=== PATIENT | female | born 1985 | race Caucasian/White ===

== ENCOUNTER 2017-03-09 05:36 | Emergency (ER) | payer MEDICAID ==
[2017-03-09] MEDS ORDERED: Levofloxacin 750mg/150mL 750 MG/150 ML BAG IV ONE ×2 (06:06→06:29)
[2017-03-09] MEDS ORDERED: Albuterol/Ipratropium Neb 3 ML AERS HHN ONE (06:06)
[2017-03-09] MEDS ORDERED: Guaifenesin DM 10 ML UDC PO ONE (06:12)
[2017-03-09] MEDS ORDERED: Acetaminophen 500 MG TAB PO ONE (06:13)
[2017-03-09 06:28] LABS: % BASOPHILS 0.4 % (0.0-2.0); % EOSINOPHILS 5.8 % (0.0-5.0); % LYMPHOCYTES 25.2 % (20.0-50.0); % MONOCYTES 6.8 % (2.0-10.0); % NEUTROPHILS 61.8 % (40.0-80.0); HEMATOCRIT 38.4 % (41.0-60); HEMOGLOBIN 13.3 gm/dL (12-16); MEAN CORPUSCULAR HEMOGLOBIN 29.1 pg (27.0-31.0); MEAN CORPUSCULAR HGB CONC 34.6 pg (28.0-36.0); MEAN PLATELET VOLUME 9.2 fl; NEUTROPHILE ABSOLUTE 6.5 Th/cmm (1.8-8.0); PLATELET COUNT 230 Th/cmm (150-400); RED BLOOD COUNT 4.57 Mil/cmm (3.80-5.10); RED CELL DISTRIBUTION WIDTH 12.4 % (11.5-20.0); WHITE BLOOD COUNT 10.4 Th/cmm (4.8-10.8)
[2017-03-09] MEDS ORDERED: Acetaminophen 500 MG TAB ONE (06:29)
[2017-03-09] MEDS ORDERED: Guaifenesin DM 10 ML UDC ONE (06:46)
[2017-03-09 06:47] LABS: ALB/GLOB RATIO 1.1 (1.0-1.8); ALKALINE PHOSPHATASE 93 U/L (34-104); ANION GAP 9.3 (7.0-16.0); BILIRUBIN,TOTAL 0.3 mg/dL (0.3-1.0); BUN - UREA NITROGEN 10 mg/dL (7-25); BUN/CREATININE RATIO 16.7; CALCIUM SERUM 8.9 mg/dL (8.6-10.3); CARBON DIOXIDE 24.2 mEq/L (21.0-31.0); CHLORIDE 106 mEq/L (98-107); CREATININE - SERUM 0.6 mg/dL (0.6-1.2); GLUCOSE 114 mg/dL (70-105); POTASSIUM SERUM 3.5 mEq/L (3.5-5.1); SGOT 18 U/L (13-39); SGPT/ALT 20 U/L (7-52); SODIUM SERUM 136 mEq/L (136-145)
[2017-03-09 06:48] LABS: CHOLESTEROL 149 mg/dL (<200); TRIGLYCERIDES 105 mg/dL (<150)
[2017-03-09] MEDS ORDERED: Potassium Chloride 20 mEq ER Tab PO ONE (07:00)
[2017-03-09] MEDS ORDERED: Mag Sulfate 2gm/50mL Premix 2 GM/50 ML BAG IV ONE (07:01)
[2017-03-09 07:27] VITALS: BP 130/82
--- NOTE | 2017-03-09 07:33 | ED Physician Chart ---
ED Chief Complaint/HPI - Patient Information Date Seen:: 03/09/17 Time Seen:: 07:27 Chief Complaint:: SHORT OF BREATH SINCE 2 AM History of Present Illness:: THIS 32 YEAR OLD FEMALE PRESENTS WITH ONSET OF DIFFICULTY BREATHING ABOUT 2 AM. THE PT HAS A HISTORY OF ASTHMA. SHE HAS A PRODUCTIVE COUGH WITH A SMALL AMOUNT OF HEMOPTYSIS. THE PT DENIES FEVER, CHILLS OR DIAPHORESIS OR CHEST PAIN. POSITIVE FOR WHEEZING. NO NAUSEA OR VOMITING. Allergies:: Allergies Allergy/AdvReac Type Severity Reaction Status Date / Time No Known Allergies Allergy Verified 03/09/17 07:26 Vitals:: Vital Signs - 8 hr 03/09/17 03/09/17 03/09/17 05:51 06:02 06:47 Temp 97.4 F HR 100 110 RR 20 22 BP 121/75 125/84 125/84 O2 Sat % 95 100 03/09/17 03/09/17 06:59 07:26 Temp HR 71 RR 17 BP 130/82 130/82 O2 Sat % 100 ED Review of Systems - Review of Systems General/Constitutional: No fever, No chills, No weight loss, No weakness, No diaphoresis, No edema, No loss of appetite Skin: No skin lesions, No rash Head: No headache, No light-headedness Eyes: No loss of vision, No diplopia ENT: No earache, No sore throat Neck: No neck pain, No thyromegaly, No stiffness Cardio Vascular: No chest pain, No palpitations, No orthopnea Pulmonary: SOB, Sputum, Wheezing GI: No nausea, No vomiting, No diarrhea, No pain G/U: No dysuria, No frequency, No hematuria Lion Tamer: No vaginal discharge Musculoskeletal: No bone or joint pain, No muscle pain Psychiatric: Prior psych history, No depression, No anxiety, No suicidal ideation Hematopoietic: No bruising, No lymphadenopathy Allergic/Immuno: No urticaria, No angioedema Neurological: No syncope, No focal symptoms, No weakness, No paresthesia, No headache, No seizure, No confusion Family Medical History - Family Member Mother History Unknown: Yes ED Physical Exam - Physical Examination General/Constitutional: Awake, Well-developed, well-nourished, Alert, No distress, GCS 15, Non-toxic appearing, Ambulatory Head: Atraumatic Eyes: Lids, conjuctiva normal, PERRL, EOMI Skin: No rash Other Skin comments:: MANY TATTOOS ENMT: External ears, nose nl, Nasal exam nl, Lips, teeth, gums nl, Oropharynx nl , Tonsils nl Neck: Nontender, Full ROM w/o pain, No JVD, No nuchal rigidity, No mass, No stridor (NO THYROMEGALY) Respiratory: Nl effort/Exclusion, Clear to Auscultation, No Wheeze/Rhonchi/Rales Cardio Vascular: RRR, No murmur, gallop, rubs, NL S1 S2 Other Cardio Vascular comments:: GOOD PULSES IN ALL 4 EXTREMITIES GI: No tenderness/rebounding/guarding, No organomegaly, No hernia, Nondistended , No mass/bruits, No McBurney tenderness Other GI comments:: Rectal exam deferred at my discretion. : No CVA tenderness Extremities: No tenderness or effusion, Full ROM, normal strength in all extremities, No edema Other Extremities comments:: No calf tenderness and negative Homans sign. Neuro/Psych: Alert/oriented, Normal sensory exam, Normal motor strength, Judgement/insight normal, Mood normal, Normal gait, No focal deficits Misc: Normal back, No paraspinal tenderness ED Labs/Radiology/EKG Results - Lab Results Results: Laboratory Tests 03/09/17 03/09/17 03/09/17 06:17 06:17 06:17 WBC 10.4 RBC 4.57 Hgb 13.3 Hct 38.4 L MCV 84.0 MCH 29.1 MCHC Differential 34.6 RDW 12.4 Plt Count 230 MPV 9.2 Neutrophils % 61.8 Lymphocytes % 25.2 Monocytes % 6.8 Eosinophils % 5.8 H Basophils % 0.4 Sodium 136 Potassium 3.5 Chloride 106 Carbon Dioxide 24.2 Anion Gap 9.3 BUN 10 Creatinine 0.6 Est GFR ( Amer) > 60.0 Est GFR (Non-Af Amer) > 60.0 BUN/Creatinine Ratio 16.7 Glucose 114 H Whole Bld Lactic Acid Calcium 8.9 Magnesium 1.9 Total Bilirubin 0.3 AST 18 ALT 20 Alkaline Phosphatase 93 Total Protein 7.4 Albumin 3.9 Globulin 3.5 Albumin/Globulin Ratio 1.1 Triglycerides Cholesterol LDL Cholesterol Direct HDL Cholesterol 03/09/17 03/09/17 06:17 06:17 WBC RBC Hgb Hct MCV MCH MCHC Differential RDW Plt Count MPV Neutrophils % Lymphocytes % Monocytes % Eosinophils % Basophils % Sodium Potassium Chloride Carbon Dioxide Anion Gap BUN Creatinine Est GFR ( Amer) Est GFR (Non-Af Amer) BUN/Creatinine Ratio Glucose Whole Bld Lactic Acid 1.25 Calcium Magnesium Total Bilirubin AST ALT Alkaline Phosphatase Total Protein Albumin Globulin Albumin/Globulin Ratio Triglycerides 105 Cholesterol 149 LDL Cholesterol Direct 100 HDL Cholesterol 49 The CBC showed no leukocytosis or anemia. Electrolytes were all within normal parameters. The glucose was 114. Lactic acid was within normal parameters. Liver function tests were all within normal parameters. Single view AP chest x-ray: No cardiomegaly or CHF. No pneumothorax. No pleural effusions. No areas of pulmonary infiltrate or consolidation. Impression: No acute cardiopulmonary findings. EKG: Sinus tachycardia at a rate of 103. Ectopy is present. Normal ID interval. QRS duration. Normal QT interval. The axis is normal. No ST segment elevation or depression. Impression: Normal EKG except for tachycardia. No ischemic findings. ED Assessment - Assessment General Assessment: CASE SUMMARY: THIS 32 YEAR OLD FEMALE HAD ONSET OF RESPIRATORY DISTRESS AND WHEEZING AT 2 AM. PT HAS PRIOR HISTORY OF ASTHMA. HER SYMPTOMS WERE ADDRESSED WITH NEBULIZED ALBUTEROL AND ATROVENT WITH COMPLETE RELIEF OF SYMPTOMS. PT HAS RX FOR PREDNISONE THAT SHE TAKES FOR MYASTHENIA GRAVIS. CXR WAS NEGATIVE FOR CHF, PULMONARY CONSOLIDATION AND PNEUMOTHORAX. DISCHARGED IN STABLE CONDITION WITH RX FOR ALBUTEROL MDI. MDM DDX ACUTE RESPIRATORY DISTRESS: NOT Pneumothorax based on negative CXR. NOT Pneumonia based on negative CXR. LOW RISK for pulmonary embolus with Well' s score of 1.5 (pulse >100). NOT Metabolic acidosis based on lab results. ED Septic Shock - . Is Septic Shock (SBP<90, OR Lactate>4 mmol\L) present?: No - <6hrs of presentation: Vital Signs: Vital Signs - 8 hr 03/09/17 03/09/17 03/09/17 05:51 06:02 06:47 Temp 97.4 F HR 100 110 RR 20 22 BP 121/75 125/84 125/84 O2 Sat % 95 100 03/09/17 03/09/17 06:59 07:26 Temp HR 71 RR 17 BP 130/82 130/82 O2 Sat % 100 ED Reassessment (Disposition) - Reassessment Reassessment Condition:: Improved - Diagnosis Diagnosis:: ASTHMA EXACERBATION. MYASTHENIA GRAVIS. Usual her metered-dose inhaler of albuterol for any further wheezing or difficulty breathing. Follow up with your primary care physician this coming week if you were not back to completely normal. Return to the emergency department for any worsening of symptoms or significant trouble breathing. - Aftercare/Follow up Instructions Aftercare/Follow-Up Instructions:: Counseled pt regarding lab results/diagnosis & need follow up - Patient Disposition Discharge/Transfer:: Home ED Discharge Plan - Patient Disposition Admit/Discharge/Transfer: PT DISCHARGED HOME Condition at Disposition: Stable Instructions: Asthma, Adult, Myasthenia Gravis Additional Instructions: Pls follow up with primary care physician in 1-2 days.
[2017-03-09] MEDS ORDERED: Atorvastatin Calcium 10 MG TAB PO SCH (09:00)
--- NOTE | 2017-03-09 09:50 | Diagnostic Imaging Report ---
CHEST X-RAY: AP view INDICATION: Bronchitis, pneumonia COMPARISON: None FINDINGS: There is no focal consolidation or pleural effusions The heart is normal in size. The osseous structures demonstrate no acute abnormalities. IMPRESSION: No focal consolidation identified.
--- NOTE | 2017-03-09 10:07 | ER Physician Documentation ---
DATE OF SERVICE: HISTORY OF PRESENT ILLNESS: A 32-year-old female. The patient is a mother of 5 children came to the hospital because of shortness of breath, productive cough for past 24 hours. The patient was apparently fine, then she started to get shortness of breath, difficulty in breathing and productive cough with yellowish greenish sputum. She had, I think, this complaint maybe a year or so ago, but after that she never had this complaint. She has no history of pneumonia, TB, pulmonary embolism, COPD, emphysema, bronchitis. She does not have any other significant complaints. She has some mild obesity. There is no history of diabetes mellitus. PAST MEDICAL HISTORY: Positive for asthma and myasthenia gravis. FAMILY HISTORY: She has a family history of high cholesterol. Mother had heart disease. CURRENT MEDICATIONS: Includes Mestinon 60 mg q.3 hours whenever her neurologist recommended for myasthenia gravis plus prednisone 10 mg a day. She takes daily methotrexate, she takes 2 mg daily. ALLERGIES: None known. PAIN: No pain. CODE STATUS: Full code. SOCIAL HISTORY: She does not smoke. She does not drink. REVIEW OF SYSTEMS: EYES: No history of double vision, blurring, blindness, exophthalmus. CENTRAL NERVOUS SYSTEM: No history of TIA, stroke, encephalitis, meningitis. PULMONARY: No history of pneumonia, TB, pulmonary embolism, COPD, emphysema, bronchitis, but right now, she has presented with acute bronchitis, rule out pneumonia. We need to get a chest x-ray done. Sputum for culture has been ordered, breathing treatments etc., antibiotics has been ordered. CARDIAC: No history of chest pain. No history of rheumatic fever, valvular heart disease, pericardial disease, or cardiomyopathy. BONES AND JOINTS: Some mild aches and pains. She has obesity. ENDOCRINE: No diabetes mellitus. No hypo or hyperthyroidism. GI: No history of diarrhea, constipation, vomiting. No history of Crohn's disease, bleeding ____ rectum. ALLERGIES: None known. HABITS: She does not smoke. She does not drink. PHYSICAL EXAMINATION: GENERAL: Done on March 09 around 6:25 p.m. showing that the patient is awake, alert, and oriented. She is short of breath. She is in respiratory distress. VITAL SIGNS: Saturation is 95%. Temperature 97.4, pulse 100 beats per minute, respirations 19, and oxygen saturation 95%, height 5 feet 1 inch, weighing 235 pounds. EXTREMITIES: No edema, no cyanosis. Peripheral pulses appear to be normal. CHEST: Appears to be emphysematous. Chest wall AP diameter is increased. Bilateral decreased air entry in both the lung barone. There are few rales, rhonchi in both lung barone. scattered all over the lung field audible. No bronchial breathing is found. ABDOMEN: Obese, otherwise benign and negative. HEART: Normal heart sounds. No fourth heart sounds. Second heart sound physiologically split. Third heart sound is absent. CENTRAL NERVOUS SYSTEM: Within normal limits at the present moment, but she has myasthenia gravis for which she is followed by her neurologist and she takes Mestinon 60 mg q.3 hours per direction of her physician. Whenever she needs it that is the time she orders it. All the orders have been written. The patient will be given the medications. Labs are ordered. The nurses will follow that or the new physician who is going to follow me will follow. If I get the results, we will report it and ____. JOB# [id number]
== END 2017-03-09 08:05 | disposition home or self-care (01) ==
LOC: ER 05:36
DX: J45.901 Unspecified asthma with (acute) exacerbation (principal); G70.00 Myasthenia gravis without (acute) exacerbation
CPT/HCPCS: 99285; 96365; 96375; 94640; 93005; 71010; 36415; 83605; 86141; 85025; 81025; 83735; 80053; 80061; J1956; C9113; J1940; J0696; J2930; 87070; 87086-90; Z7610

== ENCOUNTER 2017-07-09 08:46 | Emergency (ER) | payer MEDICAID ==
--- NOTE | 2017-07-09 11:39 | Diagnostic Imaging Report ---
CT scan of the brain without contrast History: Pain, trauma Total DLP equals 699 CTDI equals 36.5 Axial sections were obtained from the base of the skull to the vertex. There is a normal ventricular system size. No focal parenchymal lesions are seen. No evidence of any mass effect or shift of midline structures. No extra-axial masses or abnormal fluid collections. Impression: Negative examination
--- NOTE | 2017-07-09 11:41 | Diagnostic Imaging Report ---
CT scan cervical spine History: Pain, trauma Total DLP equals 497 CTDI equals 29.2 Axial sections were obtained through the cervical spine region. Additional sagittal and coronal reformatted images are provided. No focal bony lesions are seen. Specifically, no fractures are identified. There is limited visualization of the margins of the cervical spinal cord. No obvious extradural soft tissue abnormalities are seen. The prevertebral soft tissues appear normal. Impression: No acute abnormalities
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
== END 2017-07-09 12:14 | disposition home or self-care (01) ==
LOC: ER 08:46
DX: S16.1XXA Strain of muscle, fascia and tendon at neck level, initial encounter (principal); S00.03XA Contusion of scalp, initial encounter; R51 Headache; W01.0XXA Fall on same level from slipping, tripping and stumbling without subsequent striking against object, initial encounter; Y93.89 Activity, other specified; Y92.89 Other specified places as the place of occurrence of the external cause; Y99.8 Other external cause status
CPT/HCPCS: 70450-TC; 72125-TC; 81025-TC; Z7502

== ENCOUNTER 2017-07-29 11:36 | Inpatient (IN) | payer MEDICAID ==
[2017-07-29] MEDS ORDERED: Albuterol/Ipratropium Neb 3 ML AERS HHN ONE ×4 (11:50→14:08)
--- NOTE | 2017-07-29 12:00 | ED Physician Chart ---
ED Chief Complaint/HPI - Patient Information Date Seen:: 07/29/17 Time Seen:: 11:50 Chief Complaint:: Dyspnea History of Present Illness:: onset x one day of dyspnea, cough, and wheezing; hx of MG and Asthma; pt denies trauma, H/As, neck pain, C/P, SOB, Abd. Pain, A/N/V/D/C, fever, chills, or urinary s/s Allergies:: Allergies Allergy/AdvReac Type Severity Reaction Status Date / Time No Known Allergies Allergy Verified 03/09/17 07:26 Vitals:: Vital Signs - 8 hr 07/29/17 11:52 HR 120 RR 12 O2 Sat % 92 Historian:: Patient Review:: Nurse's Note Reviewed ED Review of Systems - Review of Systems General/Constitutional: No fever, No chills, No weight loss, No weakness, No diaphoresis, No edema, No loss of appetite Skin: No skin lesions, No rash, No bruising Head: No headache, No light-headedness Eyes: No loss of vision, No pain, No diplopia ENT: No earache, No nasal drainage, No sore throat, No tinnitus Neck: No neck pain, No swelling, No thyromegaly, No stiffness, No mass noted Cardio Vascular: No chest pain, No palpitations, No PND, No orthopnea, No edema Pulmonary: SOB, Cough, No sputum, Wheezing GI: No nausea, No vomiting, No diarrhea, No pain, No melena, No hematochezia, No constipation, No hematemesis G/U: No dysuria, No frequency, No hematuria Xerox Machine Operator: No vaginal discharge, No abnormal vaginal bleed, No contraction Musculoskeletal: No bone or joint pain, No back pain, No muscle pain Endocrine: No polyuria, No polydipsia Psychiatric: No prior psych history, No depression, No anxiety, No suicidal ideation, No homicidal ideation, No auditory hallucination, No visual hallucination Hematopoietic: No bruising, No lymphadenopathy Allergic/Immuno: No urticaria, No angioedema Neurological: No syncope, No focal symptoms, Weakness, No paresthesia, No headache, No seizure, No dizziness, No confusion, No vertigo ED Past Medical History - Past Medical History Obtainable: Yes Past Medical History: Asthma/COPD, Other (Myasthenia Gravis) Family History: HTN Social History: Non Smoker, No Alcohol, No Drug Use, Single Surgical History: None Psychiatricy History: None Medication: Reviewed Family Medical History - Family Member Mother History Unknown: Yes ED Physical Exam - Physical Examination General/Constitutional: Awake, Well-developed, well-nourished, Alert, No distress, GCS 15, Non-toxic appearing, Ambulatory Head: Atraumatic Eyes: Lids, conjuctiva normal, PERRL, EOMI Skin: Nl inspection, No rash, No skin lesions, No ecchymosis, Well hydrated, No lymphadenopathy ENMT: External ears, nose nl, TM canals nl, Nasal exam nl, Lips, teeth, gums nl , Oropharynx nl, Tonsils nl Neck: Nontender, Full ROM w/o pain, No JVD, No nuchal rigidity, No bruit, No mass, No stridor Respiratory: Nl effort/Exclusion Other Respiratory comments:: Lungs: + Diffuse Wheezes Cardio Vascular: RRR, No murmur, gallop, rubs, NL S1 S2 GI: No tenderness/rebounding/guarding, No organomegaly, No hernia, Normal BS's, Nondistended, No mass/bruits, No McBurney tenderness : No CVA tenderness Extremities: No tenderness or effusion, Full ROM, normal strength in all extremities, No edema, Normal digits & nails Neuro/Psych: Alert/oriented, DTR's symmetric, Normal sensory exam, Normal motor strength, Judgement/insight normal, Mood normal, Normal gait, No focal deficits Misc: Normal back, No paraspinal tenderness ED Labs/Radiology/EKG Results - Lab Results Comments:: K+: 3.4; Na+: 134 - Radiology Results Comments:: NAD - EKG Interpretations EKG Time:: 12:01 Rate & Rhythm: 111; ST Comments:: non-specific st-t changes ED Septic Shock - . Is Septic Shock (SBP<90, OR Lactate>4 mmol\L) present?: No - <6hrs of presentation: Vital Signs: Vital Signs - 8 hr 07/29/17 11:52 HR 120 RR 12 O2 Sat % 92 ED Reassessment (Disposition) - Reassessment Reassessment Condition:: Improved - Diagnosis Diagnosis:: Dx: Acute Asthma; Hypokalemia; Bronchospasms; Dyspnea; Wheezing; Bronchitis; Hyponatremia; Dehydration; Tachycardia - Aftercare/Follow up Instructions Aftercare/Follow-Up Instructions:: Counseled pt regarding lab results/diagnosis & need follow up, Counseled pt & family regarding lab results/diagnosis & need follow up - Patient Disposition Discharge/Transfer:: Acute Care w/in this hosp Accepting Physician:: Dr. Sheriff Time Called:: 1330 Time Responded:: 13:30 Admitted to:: Telemetry Spoke to:: Dr. Sheriff Admitting Medical Physician:: Dr. Sheriff Condition at Disposition:: Stable, Improved
[2017-07-29 12:27] LABS: % BASOPHILS 0.4 % (0.0-2.0); % EOSINOPHILS 5.9 % (0.0-5.0); % LYMPHOCYTES 20.6 % (20.0-50.0); % MONOCYTES 5.5 % (2.0-10.0); % NEUTROPHILS 67.6 % (40.0-80.0); EOSINOPHILE ABSOLUTE 0.5 Th/cmm (0.1-0.4); HEMATOCRIT 41.3 % (41.0-60); HEMOGLOBIN 13.9 gm/dL (12-16); LYMPHOCYTE ABSOLUTE 1.9 Th/cmm (1.5-3.0); MEAN CELL VOLUME 83.9 fl (81-100); MEAN CORPUSCULAR HEMOGLOBIN 28.2 pg (27.0-31.0); MEAN CORPUSCULAR HGB CONC 33.7 pg (28.0-36.0); MEAN PLATELET VOLUME 8.8 fl; MONOCYTE ABSOLUTE 0.5 Th/cmm (0.3-1.0); NEUTROPHILE ABSOLUTE 6.2 Th/cmm (1.8-8.0); PLATELET COUNT 237 Th/cmm (150-400); RED BLOOD COUNT 4.92 Mil/cmm (3.80-5.10); WHITE BLOOD COUNT 9.1 Th/cmm (4.8-10.8)
[2017-07-29 12:50] LABS: ALB/GLOB RATIO 1.1 (1.0-1.8); ALBUMIN 4.1 gm/dL (3.7-5.3); ALKALINE PHOSPHATASE 90 U/L (34-104); ANION GAP 9.1 (7.0-16.0); BILIRUBIN,TOTAL 0.3 mg/dL (0.3-1.0); BUN - UREA NITROGEN 7 mg/dL (7-25); CALCIUM SERUM 9.5 mg/dL (8.6-10.3); CARBON DIOXIDE 24.3 mEq/L (21.0-31.0); CHLORIDE 104 mEq/L (98-107); CHOLESTEROL 150 mg/dL (<200); CREATININE - SERUM 0.5 mg/dL (0.6-1.2); CREATININE KINASE 40 U/L (30-223); GFR AFRICAN-AMERICAN > 60.0 ml/min (>90); GFR NON AFRICAN-AMERICAN > 60.0 ml/min; GLUCOSE 114 mg/dL (70-105); HDL -HIGH DENSITY LIPOPROTEIN 43 mg/dL (23-92); POTASSIUM SERUM 3.4 mEq/L (3.5-5.1); SGOT 19 U/L (13-39); SGPT/ALT 18 U/L (7-52); SODIUM SERUM 134 mEq/L (136-145); TOTAL PROTEIN,SERUM 7.7 gm/dL (6.0-8.3); TRIGLYCERIDES 185 mg/dL (<150)
[2017-07-29 12:58] LABS: INR 0.95 (0.5-1.4); PROTHROMBIN TIME (TEST) 9.9 SECONDS (9.5-11.5)
[2017-07-29 13:11] LABS: DDIMER QUANT 164 ng/mL (100-400)
[2017-07-29] MEDS ORDERED: Potassium Chloride 20 mEq ER Tab PO ONE ×2 (14:04→14:33)
[2017-07-29] MEDS ORDERED: Sodium Chloride 0.9% 1,000 ML IV ONE (14:20)
[2017-07-29] MEDS ORDERED: cefTRIAXone 1 GM in Sodium Chloride 0.9% 50 ML IV ONE (14:49)
--- NOTE | 2017-07-29 14:57 | Diagnostic Imaging Report ---
CHEST X-RAY: AP view INDICATION: Cough COMPARISON: 03/09/2017 FINDINGS: Suboptimal lung volume are seen with mild increased right basal lung markings. There is no focal consolidation or pleural effusions . The heart is at the upper limits of normal in size. The osseous structures demonstrate no acute abnormalities. IMPRESSION: Mild increased right basal lung markings favoring atelectasis versus less likely infiltrate.
[2017-07-29] MEDS ORDERED: Albuterol Nebulizer 2.5mg/3mL HHN SCH (18:13)
[2017-07-29] MEDS ORDERED: Albuterol Nebulizer 2.5mg/3mL HHN ONE (18:15)
[2017-07-29] MEDS: Pantoprazole 40 mg/Packet PO SCH (22:04)
[2017-07-30] MEDS: methylPREDNISolone SS 40 mg Vial IVP SCH ×3 (00:20→14:18)
--- NOTE | 2017-07-30 00:51 | Progress Notes ---
DATE: 07/29/2017 REASON FOR CONSULTATION: Shortness of breath. CONSULT NOTE: This is a 32-year-old female who is a known asthmatic for 6-7 years and has been taking p.r.n. albuterol for most of the time is well controlled. Apparently last day to 3 days, patient get cold-like symptoms with questionable fever, questionable feeling cold. Subsequently, the patient's temperature tessie this morning, came to the Emergency Room for further care and necessary treatment. Had some mucoid color sputum, does not quantify the temperature, had some wheezing. No swelling of the legs, some sinus congestion, otherwise unremarkable. Denied of any other related symptomatology. PAST MEDICAL HISTORY: 1. Suggestive of bronchial asthma. 2. Myasthenia gravis, taking Mestinon and prednisone and also albuterol. SMOKING HISTORY: Nil. ALLERGIC HISTORY: Nil. FAMILY HISTORY: Noncontributory related to asthma. PHYSICAL EXAMINATION: GENERAL: This is a youngest looking female, awake, alert, oriented, not in acute distress, periodic episodes of coughing at my exam. VITAL SIGNS: The patient's recorded vitals, blood pressure is 120/70. Temperature is 98, heart rate 110-120, respirations 20. HEENT: Head is essentially unremarkable. Pupils appear to be equal and reactive to light. Oral cavity shows small oropharyngeal opening otherwise unremarkable. NECK: Short. No nodes in the neck could be palpated. CHEST: Shows scattered wheezing with diminished air entry. HEART: Regular, slightly tachycardic. ABDOMEN: Soft, nontender. EXTREMITIES: Shows no peripheral edema. LABORATORY DATA: The patient's chest x-ray shows a hypovolemic, did not take a deep breath and other laboratory studies except potassium is on the lower side. ASSESSMENT: 1. The patient has acute asthmatic bronchitis. 2. Underlying history of myasthenia gravis. 3. Question , possibly viral. PLANS AND SUGGESTIONS: We will go ahead and continue steroid. We will continue inhaled steroid. We will give bronchodilators and also add Protonix to current treatment. We will repeat chest x-ray, blood gases tomorrow to see how it is and go from there. JOB# [id number]
--- NOTE | 2017-07-30 03:30 | History & Physical ---
ADMIT DATE: 07/29/2017 CHIEF COMPLAINT: Shortness of breath. HISTORY OF PRESENT ILLNESS: This is a 32-year-old female who was evaluated at [facility] Emergency Room for fever, chest congestion, and shortness of breath, diagnosed with shortness of breath. The patient does have underlying history of asthma. The patient was diagnosed with acute exacerbations and subsequently admitted to the hospital for treatments. The patient started having fever, chest congestion for the past. It progressively got worse. Denies any sick contact. No recent travel history. Denies any nausea, vomiting, abdominal pain, dizziness, chest pain, palpitations, or diaphoresis. PAST MEDICAL HISTORY: Asthma. PAST SURGICAL HISTORY: Denies. FAMILY HISTORY: Denies any significant family history. SOCIAL HISTORY: Lives at home. Denies alcohol, tobacco, or street drug use. CURRENT MEDICATIONS: As per chart reviewed. PHYSICAL EXAMINATION: HEENT: Unremarkable. HEART: S1, S2 normal. LUNGS: Bilateral expiratory wheezing noted. ABDOMEN: Soft, nontender. NEUROLOGIC: Alert and awake. Moves all. No focal deficits. EXTREMITIES: No edema noted. No calf tenderness. AVAILABLE LABORATORY DATA: Has been reviewed. ASSESSMENT: 1. Acute exacerbations. 2. Fever, rule out influenza. 3. Obesity. PLAN: The patient admitted to Med-Surg floor. The patient was started on IV Rocephin, frequent bronchodilators, inhaled corticosteroids, IV Solu-Medrol, IV Rocephin ____. Pulmonology was consulted. We will follow up on the further workup and special recommendation. Discussed with the patient regarding conditions and plan of care with the nursing staff. JOB# [id number]
[2017-07-30 03:35] LABS: INF A SCREEN POS FOR INF A; INF B SCREEN NEG FOR INF B
[2017-07-30 03:47] VITALS: BP 123/69
[2017-07-30] MEDS: Albuterol Nebulizer 2.5mg/3mL HHN PRN ×2 (05:42→10:33)
[2017-07-30] MEDS: Budesonide 0.5 Mg/2 mL Ud HHN SCH ×2 (06:51→18:52)
[2017-07-30 07:19] LABS: % EOSINOPHILS 0.2 % (0.0-5.0); % LYMPHOCYTES 9.8 % (20.0-50.0); % MONOCYTES 0.9 % (2.0-10.0); % NEUTROPHILS 89.1 % (40.0-80.0); HEMATOCRIT 40.1 % (41.0-60); HEMOGLOBIN 13.3 gm/dL (12-16); MEAN CELL VOLUME 84.9 fl (81-100); MEAN CORPUSCULAR HEMOGLOBIN 28.1 pg (27.0-31.0); MEAN CORPUSCULAR HGB CONC 33.1 pg (28.0-36.0); MEAN PLATELET VOLUME 9.1 fl; MONOCYTE ABSOLUTE 0.1 Th/cmm (0.3-1.0); PLATELET COUNT 265 Th/cmm (150-400); RED BLOOD COUNT 4.72 Mil/cmm (3.80-5.10); RED CELL DISTRIBUTION WIDTH 13.3 % (11.5-20.0); WHITE BLOOD COUNT 10.1 Th/cmm (4.8-10.8)
[2017-07-30 08:52] LABS: ALLEN TEST POSITIVE; pH 7.38 (7.35-7.45)
[2017-07-30] MEDS: Pantoprazole 40 mg/Packet PO SCH (09:48)
--- NOTE | 2017-07-30 09:51 | Diagnostic Imaging Report ---
Chest x-ray 2 views HISTORY:Shortness of breath The overall heart size is normal. No focal pulmonary processes. No hilar or mediastinal abnormalities. IMPRESSION: No acute abnormalities.
[2017-07-30] MEDS: Albuterol/Ipratropium Neb 3 ML AERS HHN SCH ×2 (14:20→18:40)
--- NOTE | 2017-07-30 20:43 | General Progress Note ---
Subjective - Review of Systems Service Date: 07/30/17 Subjective: Patient seen and examined feels better denied any complaints Objective - Results Result Diagrams: 07/30/17 06:21 07/29/17 12:15 Recent Labs: Laboratory Last Values WBC 10.1 Th/cmm (4.8-10.8) 07/30/17 06:21 RBC 4.72 Mil/cmm (3.80-5.10) 07/30/17 06:21 Hgb 13.3 gm/dL (12-16) 07/30/17 06:21 Hct 40.1 % (41.0-60) L 07/30/17 06:21 MCV 84.9 fl (81-100) 07/30/17 06:21 MCH 28.1 pg (27.0-31.0) 07/30/17 06:21 MCHC Differential 33.1 pg (28.0-36.0) 07/30/17 06:21 RDW 13.3 % (11.5-20.0) 07/30/17 06:21 Plt Count 265 Th/cmm (150-400) 07/30/17 06:21 MPV 9.1 fl 07/30/17 06:21 Neutrophils % 89.1 % (40.0-80.0) H 07/30/17 06:21 Lymphocytes % 9.8 % (20.0-50.0) L 07/30/17 06:21 Monocytes % 0.9 % (2.0-10.0) L 07/30/17 06:21 Eosinophils % 0.2 % (0.0-5.0) 07/30/17 06:21 Basophils % 0.0 % (0.0-2.0) 07/30/17 06:21 PT 9.9 SECONDS (9.5-11.5) 07/29/17 12:15 INR 0.95 (0.5-1.4) 07/29/17 12:15 D-Dimer 164 ng/mL (100-400) 07/29/17 12:15 Specimen Source Arterial 07/30/17 08:38 Sample Site Left Radial 07/30/17 08:38 pH 7.38 (7.35-7.45) 07/30/17 08:38 pCO2 40.0 mmHg (35.0-45.0) 07/30/17 08:38 pO2 60.0 mmHg (80.0-100.0) L 07/30/17 08:38 HCO3 23.7 mEq/L (20.0-26.0) 07/30/17 08:38 Base Excess -1.3 mEq/L (-3.0-3.0) 07/30/17 08:38 O2 Saturation 90.0 % (92.0-100.0) L 07/30/17 08:38 Khoa Test POSITIVE 07/30/17 08:38 Vent Rate NA 07/30/17 08:38 Inspired O2 28 07/30/17 08:38 Tidal Volume NA 07/30/17 08:38 PEEP NA 07/30/17 08:38 Pressure (ins/psv/peep) NA 07/30/17 08:38 Critical Value BJORN MATUTE 07/30/17 08:38 Sodium 134 mEq/L (136-145) L 07/29/17 12:15 Potassium 3.4 mEq/L (3.5-5.1) L 07/29/17 12:15 Chloride 104 mEq/L (98-107) 07/29/17 12:15 Carbon Dioxide 24.3 mEq/L (21.0-31.0) 07/29/17 12:15 Anion Gap 9.1 (7.0-16.0) 07/29/17 12:15 BUN 7 mg/dL (7-25) 07/29/17 12:15 Creatinine 0.5 mg/dL (0.6-1.2) L 07/29/17 12:15 Est GFR ( Amer) > 60.0 ml/min (>90) 07/29/17 12:15 Est GFR (Non-Af Amer) > 60.0 ml/min 07/29/17 12:15 BUN/Creatinine Ratio 14.0 07/29/17 12:15 Glucose 114 mg/dL (70-105) H 07/29/17 12:15 POC Glucose 162 MG/DL (70 - 105) H 07/30/17 03:05 Calcium 9.5 mg/dL (8.6-10.3) 07/29/17 12:15 Total Bilirubin 0.3 mg/dL (0.3-1.0) 07/29/17 12:15 AST 19 U/L (13-39) 07/29/17 12:15 ALT 18 U/L (7-52) 07/29/17 12:15 Alkaline Phosphatase 90 U/L (34-104) 07/29/17 12:15 Creatine Kinase 40 U/L (30-223) 07/29/17 12:15 Troponin I < 0.01 ng/mL (0.01-0.05) L 07/29/17 12:15 B-Natriuretic Peptide 5.5 pg/mL (5.0-100.0) 07/29/17 12:15 Total Protein 7.7 gm/dL (6.0-8.3) 07/29/17 12:15 Albumin 4.1 gm/dL (3.7-5.3) 07/29/17 12:15 Globulin 3.6 gm/dL 07/29/17 12:15 Albumin/Globulin Ratio 1.1 (1.0-1.8) 07/29/17 12:15 Triglycerides 185 mg/dL (<150) H 07/29/17 12:15 Cholesterol 150 mg/dL (<200) 07/29/17 12:15 LDL Cholesterol Direct 86 mg/dL (75-193) 07/29/17 12:15 HDL Cholesterol 43 mg/dL (23-92) 07/29/17 12:15 Serum , Qual NEGATIVE (NEGATIVE) 07/29/17 12:15 Influenza A (Rapid) POS FOR INF A H 07/29/17 22:00 Influenza B (Rapid) NEG FOR INF B 07/29/17 22:00 - Physical Exam Vitals and I&O: Vital Signs Temp 96.6 F 07/30/17 20:00 Pulse 137 07/30/17 20:00 Resp 18 07/30/17 20:00 BP 125/66 07/30/17 20:00 Pulse Ox 97 07/30/17 20:00 Intake & Output 07/30/17 07/30/17 07/31/17 06:59 18:59 06:59 Intake Total 240 Balance 240 Weight (lbs) 106.141 kg 106.141 kg Intake: Oral 240 Other: # Voids 1 # Bowel Movements 0 Stool Characteristics Soft Active Medications: Current Medications Albuterol Sulfate (Albuterol 2.5mg/3ml Neb Ud) 2.5 mg HHN Q2H PRN PRN Reason: Shortness of Breath or Wheeze Stop: 09/27/17 18:12 Last Admin: 07/30/17 10:33 Dose: 2.5 mg Albuterol/Ipratropium (Duoneb Neb) 3 ml HHN [id number] [facility] Stop: 09/28/17 14:59 Last Admin: 07/30/17 18:40 Dose: 3 ml Budesonide (Pulmicort) 0.5 mg HHN BIDRT [facility] Stop: 09/28/17 06:59 Last Admin: 07/30/17 18:52 Dose: 0.5 mg Oseltamivir Phosphate (Tamiflu) 75 mg PO BID [facility] Stop: 09/27/17 19:44 Last Admin: 07/30/17 17:19 Dose: 75 mg Pantoprazole Sodium (Protonix) 40 mg PO DAILY [facility] Stop: 09/27/17 19:44 Last Admin: 07/30/17 09:48 Dose: 40 mg Prednisone (Deltasone) 10 mg PO BID [facility] Stop: 09/28/17 16:59 Last Admin: 07/30/17 17:19 Dose: 10 mg Pyridostigmine [place] (Mestinon) 60 mg PO TID [facility] General: Alert Cardiovascular: Regular rate Lungs: Other (few rales) Assessment/Plan - Problem List Patient Problems: All Active Problems SEVERE DYSPNEA WITH UPPER BACK PAIN (Acute) - Assessment Assessment: Acute asthma excerbation Influenza A illness Myesthenia gravia - Plan Plan: Tamiflu Steoids Rocephine HHN Plan of care discussed with nursing staff
--- NOTE | 2017-07-31 03:47 | Progress Notes ---
DATE: 07/30/2017 PROBLEM LIST: 1. Acute bronchial asthma. 2. Acute viral syndrome. SYMPTOMS: Nil, feeling better, breathing is much better than what it has been and no respiratory distress, etc. PHYSICAL EXAMINATION: VITAL SIGNS: The patient's recorded vitals, her temperature is 97.8, blood pressure 112/61. NECK: Veins not visualized. CHEST: Shows diminished air entry with occasional rhonchi. HEART: Regular. ABDOMEN: Soft, nontender. LABORATORY DATA: The patient's white count is 10,001. ABG, pO2 of 60 and influenza A titer is positive, rapid influenza titer. The patient's chest x-ray is clear. ASSESSMENT: The patient has acute viral syndrome with asthmatic bronchitis. PLANS AND SUGGESTIONS: We will switch her to oral medication, oral steroid and will go ahead and continue Tamiflu for now and will follow through other studies, etc., in next 24 hours. The patient remains clinically should be okay to discharge in the next 24-48 hours. Care and plan discussed with the nursing staff. JOB# [id number]
[2017-07-31 07:07] LABS: ANION GAP 9.9 (7.0-16.0); BUN - UREA NITROGEN 12 mg/dL (7-25); CALCIUM SERUM 9.3 mg/dL (8.6-10.3); CARBON DIOXIDE 20.8 mEq/L (21.0-31.0); CHLORIDE 106 mEq/L (98-107); CREATININE - SERUM 0.5 mg/dL (0.6-1.2); GFR AFRICAN-AMERICAN > 60.0 ml/min (>90); GFR NON AFRICAN-AMERICAN > 60.0 ml/min; GLUCOSE 121 mg/dL (70-105); POTASSIUM SERUM 3.7 mEq/L (3.5-5.1); SODIUM SERUM 133 mEq/L (136-145)
[2017-07-31] MEDS: Albuterol/Ipratropium Neb 3 ML AERS HHN SCH ×2 (07:57→11:26)
[2017-07-31] MEDS: Budesonide 0.5 Mg/2 mL Ud HHN SCH (07:59)
[2017-07-31] MEDS: Pantoprazole 40 mg/Packet PO SCH (09:48)
--- NOTE | 2017-07-31 13:38 | General Progress Note ---
Subjective - Review of Systems Service Date: 07/31/17 Subjective: Patient seen and examined feels better denied any complaints Objective - Results Result Diagrams: 07/30/17 06:21 07/31/17 06:00 Recent Labs: Laboratory Last Values WBC 10.1 Th/cmm (4.8-10.8) 07/30/17 06:21 RBC 4.72 Mil/cmm (3.80-5.10) 07/30/17 06:21 Hgb 13.3 gm/dL (12-16) 07/30/17 06:21 Hct 40.1 % (41.0-60) L 07/30/17 06:21 MCV 84.9 fl (81-100) 07/30/17 06:21 MCH 28.1 pg (27.0-31.0) 07/30/17 06:21 MCHC Differential 33.1 pg (28.0-36.0) 07/30/17 06:21 RDW 13.3 % (11.5-20.0) 07/30/17 06:21 Plt Count 265 Th/cmm (150-400) 07/30/17 06:21 MPV 9.1 fl 07/30/17 06:21 Neutrophils % 89.1 % (40.0-80.0) H 07/30/17 06:21 Lymphocytes % 9.8 % (20.0-50.0) L 07/30/17 06:21 Monocytes % 0.9 % (2.0-10.0) L 07/30/17 06:21 Eosinophils % 0.2 % (0.0-5.0) 07/30/17 06:21 Basophils % 0.0 % (0.0-2.0) 07/30/17 06:21 PT 9.9 SECONDS (9.5-11.5) 07/29/17 12:15 INR 0.95 (0.5-1.4) 07/29/17 12:15 D-Dimer 164 ng/mL (100-400) 07/29/17 12:15 Specimen Source Arterial 07/30/17 08:38 Sample Site Left Radial 07/30/17 08:38 pH 7.38 (7.35-7.45) 07/30/17 08:38 pCO2 40.0 mmHg (35.0-45.0) 07/30/17 08:38 pO2 60.0 mmHg (80.0-100.0) L 07/30/17 08:38 HCO3 23.7 mEq/L (20.0-26.0) 07/30/17 08:38 Base Excess -1.3 mEq/L (-3.0-3.0) 07/30/17 08:38 O2 Saturation 90.0 % (92.0-100.0) L 07/30/17 08:38 Khoa Test POSITIVE 07/30/17 08:38 Vent Rate NA 07/30/17 08:38 Inspired O2 28 07/30/17 08:38 Tidal Volume NA 07/30/17 08:38 PEEP NA 07/30/17 08:38 Pressure (ins/psv/peep) NA 07/30/17 08:38 Critical Value BJORN MATUTE 07/30/17 08:38 Sodium 133 mEq/L (136-145) L 07/31/17 06:00 Potassium 3.7 mEq/L (3.5-5.1) 07/31/17 06:00 Chloride 106 mEq/L (98-107) 07/31/17 06:00 Carbon Dioxide 20.8 mEq/L (21.0-31.0) L 07/31/17 06:00 Anion Gap 9.9 (7.0-16.0) 07/31/17 06:00 BUN 12 mg/dL (7-25) 07/31/17 06:00 Creatinine 0.5 mg/dL (0.6-1.2) L 07/31/17 06:00 Est GFR ( Amer) > 60.0 ml/min (>90) 07/31/17 06:00 Est GFR (Non-Af Amer) > 60.0 ml/min 07/31/17 06:00 BUN/Creatinine Ratio 24.0 07/31/17 06:00 Glucose 121 mg/dL (70-105) H 07/31/17 06:00 POC Glucose 162 MG/DL (70 - 105) H 07/30/17 03:05 Calcium 9.3 mg/dL (8.6-10.3) 07/31/17 06:00 Total Bilirubin 0.3 mg/dL (0.3-1.0) 07/29/17 12:15 AST 19 U/L (13-39) 07/29/17 12:15 ALT 18 U/L (7-52) 07/29/17 12:15 Alkaline Phosphatase 90 U/L (34-104) 07/29/17 12:15 Creatine Kinase 40 U/L (30-223) 07/29/17 12:15 Troponin I < 0.01 ng/mL (0.01-0.05) L 07/29/17 12:15 B-Natriuretic Peptide 5.5 pg/mL (5.0-100.0) 07/29/17 12:15 Total Protein 7.7 gm/dL (6.0-8.3) 07/29/17 12:15 Albumin 4.1 gm/dL (3.7-5.3) 07/29/17 12:15 Globulin 3.6 gm/dL 07/29/17 12:15 Albumin/Globulin Ratio 1.1 (1.0-1.8) 07/29/17 12:15 Triglycerides 185 mg/dL (<150) H 07/29/17 12:15 Cholesterol 150 mg/dL (<200) 07/29/17 12:15 LDL Cholesterol Direct 86 mg/dL (75-193) 07/29/17 12:15 HDL Cholesterol 43 mg/dL (23-92) 07/29/17 12:15 Serum , Qual NEGATIVE (NEGATIVE) 07/29/17 12:15 Influenza A (Rapid) POS FOR INF A H 07/29/17 22:00 Influenza B (Rapid) NEG FOR INF B 07/29/17 22:00 - Physical Exam Vitals and I&O: Vital Signs Temp 96.5 F 07/31/17 05:00 Pulse 85 07/31/17 11:25 Resp 18 07/31/17 11:25 BP 108/72 07/31/17 05:00 Pulse Ox 98 07/31/17 11:25 Intake & Output 07/30/17 07/31/17 07/31/17 18:59 06:59 18:59 Intake Total 50 Balance 50 Weight (lbs) 106.141 kg 106.141 kg Intake: Oral 50 Other: # Voids 1 Stool Characteristics Soft Soft Soft Active Medications: Current Medications Albuterol Sulfate (Albuterol 2.5mg/3ml Neb Ud) 2.5 mg HHN Q2H PRN PRN Reason: Shortness of Breath or Wheeze Stop: 09/27/17 18:12 Last Admin: 07/30/17 10:33 Dose: 2.5 mg Albuterol/Ipratropium (Duoneb Neb) 3 ml HHN [id number] [facility] Stop: 09/28/17 14:59 Last Admin: 07/31/17 11:26 Dose: 3 ml Budesonide (Pulmicort) 0.5 mg HHN BIDRT [facility] Stop: 09/28/17 06:59 Last Admin: 07/31/17 07:59 Dose: 0.5 mg Oseltamivir Phosphate (Tamiflu) 75 mg PO BID [facility] Stop: 09/27/17 19:44 Last Admin: 07/31/17 09:48 Dose: 75 mg Pantoprazole Sodium (Protonix) 40 mg PO DAILY [facility] Stop: 09/27/17 19:44 Last Admin: 07/31/17 09:48 Dose: 40 mg Prednisone (Deltasone) 10 mg PO BID [facility] Stop: 09/28/17 16:59 Last Admin: 07/31/17 09:48 Dose: 10 mg Pyridostigmine [place] (Mestinon) 60 mg PO TID [facility] Last Admin: 07/31/17 09:49 Dose: 60 mg General: Alert Cardiovascular: Regular rate Lungs: Clear to auscultation, Other (few rales) Assessment/Plan - Problem List Patient Problems: All Active Problems SEVERE DYSPNEA WITH UPPER BACK PAIN (Acute) - Assessment Assessment: Acute asthma excerbation Influenza A illness Myesthenia gravia - Plan Plan: DC home today with Tamiflu and Z joel DC plan discussed with the patient
== END 2017-07-31 14:30 | disposition home or self-care (01) | DRG 141 ==
LOC: ER 11:36 → MSI 15:50
PROVIDERS: ADMIT Family Medicine; ATTEND Family Medicine
DX: J45.901 Unspecified asthma with (acute) exacerbation (principal); G70.00 Myasthenia gravis without (acute) exacerbation; E87.1 Hypo-osmolality and hyponatremia; J11.1 Influenza due to unidentified influenza virus with other respiratory manifestations; E87.6 Hypokalemia; J44.9 Chronic obstructive pulmonary disease, unspecified; E86.0 Dehydration; E66.9 Obesity, unspecified; B34.9 Viral infection, unspecified; R00.0 Tachycardia, unspecified; Z68.41 Body mass index [BMI] 40.0-44.9, adult; Z82.49 Family history of ischemic heart disease and other diseases of the circulatory system
CPT/HCPCS: 36415-UA; 36600-90; 71045-TC; 71046-TC; 80048-TC; 80053-TC; 80061-TC; 82550-TC; 82803-TC; 82948-90; 83880-TC; 84484-TC; 84703-TC; 85025-TC; 85379-TC; 85610-TC; 87804-TC; 93005; 94640; 94760; 96375; J0696; J2405; J2920; J2930; J7030; J7613; Z7610

== ENCOUNTER 2018-01-23 15:20 | Emergency (ER) | payer MEDICAID ==
[2018-01-23] MEDS ORDERED: Albuterol/Ipratropium Neb 3 ML AERS HHN ONE ×2 (15:24→15:27)
--- NOTE | 2018-01-23 15:25 | ED Physician Chart ---
ED Chief Complaint/HPI - Patient Information Date Seen:: 01/23/18 Time Seen:: 15:30 Chief Complaint:: shortness of breath History of Present Illness:: Patient developed shortness of breath about 1 PM this afternoon. Patient's had a cough productive of white sputum since last night. No fever. Patient has myasthenia gravis which during an exacerbation causes weakness. The current episode feels like an exacerbation of her asthma not myasthenia gravis worsening. Allergies:: Allergies Allergy/AdvReac Type Severity Reaction Status Date / Time No Known Allergies Allergy Verified 03/09/17 07:26 Historian:: Patient ED Review of Systems - Review of Systems General/Constitutional: No fever, No chills, No weight loss, No weakness, No diaphoresis, No edema, No loss of appetite Skin: No skin lesions, No rash, No bruising Head: No headache, No light-headedness Eyes: No loss of vision, No pain, No diplopia ENT: No earache, No nasal drainage, No sore throat, No tinnitus Neck: No neck pain, No swelling, No thyromegaly, No stiffness, No mass noted Cardio Vascular: No chest pain, No palpitations, No PND, No orthopnea, No edema Pulmonary: SOB, Cough, Sputum, No wheezing GI: No nausea, No vomiting, No diarrhea, No pain, No melena, No hematochezia, No constipation, No hematemesis G/U: No dysuria, No frequency, No hematuria Musculoskeletal: No bone or joint pain, No back pain, No muscle pain Endocrine: No polyuria, No polydipsia Psychiatric: No prior psych history, No depression, No anxiety, No suicidal ideation Hematopoietic: No bruising, No lymphadenopathy Allergic/Immuno: No urticaria, No angioedema Neurological: No syncope, No focal symptoms, No weakness, No paresthesia, No headache, No seizure, No dizziness, No confusion, No vertigo Family Medical History - Family Member Mother History Unknown: Yes Ethnicity: Living Status: Still Living Hx Family Cancer: No Hx Family Coronary Artery Disease: No Hx Family Congestive Heart Failure: No Hx Family Hypertension: Yes Hx Family Stroke: Yes Hx Family Diabetes: No Hx Family Seizures: No Hx Family Dementia: No Hx Family AIDS: No Hx Family HIV: No Hx Family COPD: No Hx Family Hepatitis: No Hx Family Psychiatric Problems: No Hx Family Tuberculosis: No ED Physical Exam - Physical Examination General/Constitutional: Awake, Well-developed, well-nourished, Alert, No distress, GCS 15, Non-toxic appearing, Ambulatory Other Gen/Cons comments:: Mild to moderate shortness of breath Head: Atraumatic Eyes: Lids, conjuctiva normal, PERRL, EOMI Skin: Nl inspection, No rash, No skin lesions, No ecchymosis, Well hydrated, No lymphadenopathy ENMT: External ears, nose nl, Nasal exam nl, Lips, teeth, gums nl Neck: Nontender, Full ROM w/o pain, No JVD, No nuchal rigidity, No bruit, No mass, No stridor Other Respiratory comments:: Diffuse 1.5 out of 4 wheezing Cardio Vascular: RRR, No murmur, gallop, rubs, NL S1 S2 GI: No tenderness/rebounding/guarding, No organomegaly, No hernia, Normal BS's, Nondistended, No mass/bruits, No McBurney tenderness : No CVA tenderness Extremities: No tenderness or effusion, Full ROM, normal strength in all extremities, No edema, Normal digits & nails Neuro/Psych: Alert/oriented, DTR's symmetric, Normal sensory exam, Normal motor strength, Judgement/insight normal, Mood normal, Normal gait, No focal deficits Misc: Normal back, No paraspinal tenderness ED Assessment - Assessment General Assessment: After one breathing treatment of albuterol and Atrovent patient felt much improved. Patient is on prednisone 20 mg a day for myasthenia gravis but I will give her 60 mg prednisone in the emergency room and prescribe 60 mg a day for the next 4 days. Also to be prescribed his a Ventolin metered-dose inhaler which the person is currently on. ED Reassessment (Disposition) - Reassessment Reassessment Condition:: Improved - Diagnosis Diagnosis:: Exacerbation of asthma; acute viral bronchitis; history of myasthenia gravis - Aftercare/Follow up Instructions Medication Prescribed:: Prednisone 60 mg a day for 4 days; Ventolin metered dose inhaler to use 2 puffs every 4 hours as necessary for shortness of breath. - Patient Disposition Condition at Disposition:: Stable, Improved
== END 2018-01-23 16:10 | disposition home or self-care (01) ==
LOC: ER 15:20
DX: J45.901 Unspecified asthma with (acute) exacerbation (principal); J20.8 Acute bronchitis due to other specified organisms; G70.9 Myoneural disorder, unspecified
CPT/HCPCS: 94640; Z7502

== ENCOUNTER 2018-01-23 22:54 | Emergency (ER) | payer MEDICAID ==
[2018-01-23] MEDS ORDERED: Albuterol/Ipratropium Neb 3 ML AERS HHN ONE ×2 (22:58→23:06)
--- NOTE | 2018-01-23 23:44 | ED Physician Chart ---
ED Chief Complaint/HPI - Patient Information Date Seen:: 01/23/18 Time Seen:: 23:20 Chief Complaint:: shortness of breath History of Present Illness:: Patient was seen here earlier today for shortness of breath. Patient's had a cough productive of white sputum since last night. No chills or fever. Patient received 60 mg of prednisone orally in the emergency department earlier and an albuterol/Atrovent breathing treatment and felt better afterwards. Patient returns for recurrence of his shortness of breath. Allergies:: Allergies Allergy/AdvReac Type Severity Reaction Status Date / Time No Known Allergies Allergy Verified 03/09/17 07:26 Vitals:: Vital Signs - 8 hr 01/23/18 01/23/18 23:00 23:31 Temp 98.4 F 97.8 F HR 129 122 RR 22 20 BP 122/72 116/69 O2 Sat % 97 98 Historian:: Patient Review:: Nurse's Note Reviewed ED Review of Systems - Review of Systems General/Constitutional: No fever, No chills Skin: No skin lesions Head: No headache Eyes: No loss of vision ENT: No earache Neck: No neck pain Cardio Vascular: No chest pain, No palpitations Pulmonary: SOB, Cough GI: No nausea, No vomiting, No diarrhea G/U: No dysuria Musculoskeletal: No bone or joint pain Endocrine: No polyuria Psychiatric: No prior psych history, No depression, No anxiety Hematopoietic: No bruising Allergic/Immuno: No urticaria Neurological: No syncope, No focal symptoms ED Past Medical History - Past Medical History Past Medical History: Asthma/COPD, Other (myasthenia gravis) Family History: None Social History: Non Smoker, No Alcohol Surgical History: None Psychiatricy History: None Medication: Reviewed Family Medical History - Family Member Mother History Unknown: Yes Ethnicity: Living Status: Still Living Hx Family Cancer: No Hx Family Coronary Artery Disease: No Hx Family Congestive Heart Failure: No Hx Family Hypertension: Yes Hx Family Stroke: Yes Hx Family Diabetes: No Hx Family Seizures: No Hx Family Dementia: No Hx Family AIDS: No Hx Family HIV: No Hx Family COPD: No Hx Family Hepatitis: No Hx Family Psychiatric Problems: No Hx Family Tuberculosis: No ED Physical Exam - Physical Examination General/Constitutional: Awake, Well-developed, well-nourished, Alert, No distress, GCS 15, Non-toxic appearing, Ambulatory Other Gen/Cons comments:: Patient appears at worst minimally short of breath Head: Atraumatic Eyes: Lids, conjuctiva normal, PERRL, EOMI Skin: Nl inspection, No rash, No skin lesions, No ecchymosis, Well hydrated, No lymphadenopathy ENMT: External ears, nose nl, Nasal exam nl, Lips, teeth, gums nl Neck: Nontender, Full ROM w/o pain, No JVD, No nuchal rigidity, No bruit, No mass, No stridor Respiratory: Nl effort/Exclusion, Clear to Auscultation, No Wheeze/Rhonchi/Rales Cardio Vascular: RRR, No murmur, gallop, rubs, NL S1 S2 GI: No tenderness/rebounding/guarding, No organomegaly, No hernia, Normal BS's, Nondistended, No mass/bruits, No McBurney tenderness : No CVA tenderness Extremities: No tenderness or effusion, Full ROM, normal strength in all extremities, No edema, Normal digits & nails Neuro/Psych: Alert/oriented, DTR's symmetric, Normal sensory exam, Normal motor strength, Judgement/insight normal, Mood normal, Normal gait, No focal deficits Misc: Normal back, No paraspinal tenderness ED Assessment - Assessment General Assessment: Patient felt better after breathing treatment of albuterol/Atrovent ED Septic Shock - . Is Septic Shock (SBP<90, OR Lactate>4 mmol\L) present?: No - <6hrs of presentation: Vital Signs: Vital Signs - 8 hr 01/23/18 01/23/18 23:00 23:31 Temp 98.4 F 97.8 F HR 129 122 RR 22 20 BP 122/72 116/69 O2 Sat % 97 98 ED Reassessment (Disposition) - Reassessment Reassessment Condition:: Improved - Diagnosis Diagnosis:: Asthma exacerbation - Patient Disposition Discharge/Transfer:: Home Condition at Disposition:: Stable, Improved
== END 2018-01-23 23:46 | disposition home or self-care (01) ==
LOC: ER 22:54
DX: J45.901 Unspecified asthma with (acute) exacerbation (principal)
CPT/HCPCS: 94640; Z7502